=== PATIENT | female | born 1980 | race Caucasian/White ===

== ENCOUNTER 2016-12-03 22:15 | Emergency (ER) | payer MEDICAID ==
[2016-12-03 22:28] VITALS: BP 112/84
--- NOTE | 2016-12-03 22:45 | EDM.PDOC ---
ED HPI RENAL/ - General Chief Complaint: Genitourinary Problem Stated Complaint: UTI Time Seen by Provider: 12/03/16 22:44 Source of Information: Reports: Patient History Limitations: Reports: No limitations - History of Present Illness INITIAL COMMENTS - FREE TEXT/NARRATIVE: 36-year-old female presents to the ED with acute onset of dysuria urgency and frequency and lower abdominal suprapubic pressure discomfort. No back pain no fever no chills. She reports she did have sexual intercourse over the weekend which is not had for a lengthy period of time. She has had a previous urinary tract infection. Does not believe she is . No previous abdominal surgeries. Symptom Onset Date: 12/03/16 Symptom Onset Time: 18:00 Timing/Duration: Reports: Hour(s):, Sudden onset Location: Reports: urethral, suprapubic Quality: Reports: burning, cramping Severity: moderate (frequency and urgency with dysuria.) Worsens with: Reports: urinating Context: Reports: other (recent return to active sexual intercourse.). Denies: sick contact, recent surgery, recent trauma, lifting, activity/exercise Associated Symptoms: Reports: burning, dysuria, frequency, urgency, abdominal pain. Denies: hesitancy, nocturia, unable to urinate, voiding small amounts, dyspareunia, vaginal bleeding, vaginal discharge, amenorrhea, dysmenorrhea, menorrhagia, groin pain, swelling, blood in urine, fever/chills, inguinal mass ( suprapubic pressure discomfort.), nausea/vomiting, constipation, diarrhea Treatments EXPRESSIVE THERAPIST: Reports: Other (see below) (none) - Related Data Allergies/ADRs: Allergies Allergy/AdvReac Type Severity Reaction Status Date / Time No Known Allergies Allergy Verified 12/03/16 22:28 Home Meds: Home Meds Albuterol Sulfate [Proair Hfa] 8.5 gm IH Q4HR PRN #1 hfa.aer.ad 11/22/16 [Rx] Nitrofurantoin Isabella/Macrocryst [Macrobid] 100 mg PO BID #12 cap 12/03/16 [Rx] Past Medical History Respiratory History: Reports: Asthma, Pneumonia, recurrent - Past Surgical History HEENT Surgical History: Reports: Adenoidectomy, Other (see below) Other HEENT Surgeries/Procedures: polyps in nose removed; sinus surgery Social & Family History - Tobacco Use Smoking Status *Q: Current Every Day Smoker Years of Tobacco use: 20 Packs/Tins Daily: 0.5 - Caffeine Use Caffeine Use: Reports: None - Recreational Drug Use Recreational Drug Use: No ED ROS GENERAL - Review of Systems Review Of Systems: See Below Constitutional: Reports: no symptoms HEENT: Reports: No symptoms Respiratory: Reports: no symptoms Cardiovascular: Reports: No symptoms Endocrine: Reports: no symptoms GI/Abdominal: Reports: Abdominal pain (mild suprapubic pressure discomfort.) : Reports: dysuria, frequency, pain, urgency. Denies: flank pain Musculoskeletal: Reports: no symptoms Skin: Reports: no symptoms Neurological: Reports: no symptoms Psychiatric: Reports: No symptoms ED EXAM, RENAL/ - Physical Exam Exam: See Below Exam Limited By: No limitations General Appearance: alert, WD/WN, mild distress GI/Abdominal: normal bowel sounds, soft, non tender, no organomegaly, no distention, no mass, other (no scars) Extremities: normal inspection, normal range of motion, no pedal edema, normal capillary refill, slow capillary refill Neurological: alert, oriented, CN II-XII intact, normal cognition Course - Vital Signs Last Recorded V/S: Last Vital Signs Temp 36.3 C 12/03/16 22:22 Pulse 82 12/03/16 22:22 Resp 16 12/03/16 22:22 BP 112/84 12/03/16 22:22 Pulse Ox - Orders/Labs/Meds Orders: Active Orders 24 hr Category Date Time Status CULTURE URINE [RM] Stat Lab 12/03/16 23:28 Uncollected Phenazopyridine [Urinary Pain Relief] Med 12/04/16 09:00 Active 95 mg PO TIDPC Medication Orders Phenazopyridine HCl (Urinary Pain Relief) 95 mg PO TIDPC INDU Labs: Laboratory Tests 12/03/16 12/03/16 Range/Units 22:20 22:20 Urine Color Yellow (Yellow) Urine Appearance Cloudy H (Clear) Urine pH 5.5 (5.0-8.0) Ur Specific [place] > or = 1.030 (1.005-1.030) Urine Protein 2+ H (Negative) Urine Glucose (UA) Negative (Negative) Urine Ketones Negative (Negative) Urine Occult Blood 3+ H (Negative) Urine Nitrite Negative (Negative) Urine Bilirubin 1+ H (Negative) Urine Urobilinogen 0.2 (0.2-1.0) Ur Leukocyte Esterase Trace H (Negative) Urine RBC 30-40 H (0-5) /hpf Urine WBC 40-50 H (0-5) /hpf Ur Epithelial Cells 0-5 (0-5) /hpf Calcium Oxalate Crystal Few H (NONE) Urine Bacteria Moderate H (FEW) /hpf Urine Mucus Few (FEW) /hpf Urine HCG, Qual Negative (NEGATIVE) Meds: Medications Generic Name Dose Route Start Last Admin Trade Name Freq PRN Reason Stop Dose Admin Phenazopyridine HCl 95 mg 12/04/16 09:00 Urinary Pain Relief PO TIDPC INDU Discontinued Medications Generic Name Dose Route Start Last Admin Trade Name Freq PRN Reason Stop Dose Admin Levofloxacin 500 mg 12/03/16 22:58 12/03/16 23:06 Levaquin PO 12/03/16 22:59 500 mg ONETIME ONE Administration Phenazopyridine HCl Confirm 12/03/16 23:05 12/03/16 23:07 Urinary Pain Relief Administered 12/03/16 23:06 95 mg Dose Administration 95 mg .ROUTE .[facility] ONE - Radiology Interpretation Free Text/Narrative:: 36-year-old female presents the ED with acute onset of dysuria urgency and frequency. Started about 6 hours ago. Have regular sexual intercourse this weekend which she has not had for a lengthy period of time. Most likely this is the precipitant of acute urinary tract infection. Plan urinalysis to be done. She is very symptomatic and will therefore be given by radium 95 mg per oral and Levaquin 500 mg per or now. - Re-Assessments/Exams Free Text/Narrative Re-Assessment/Exam: 12/03/16 23:2 urinalysis was strongly positive for infective process. Urine culture ordered.treated with Levaquin 500 mg orally in the ED and initial dose of Pyridium 95 mg per oral. She we discharged home to fill prescription for Macrobid 100 mg twice daily for the next 6 days starting tomorrow morning. Departure - Departure Time of Disposition: 22:59 Disposition: Home, Self-Care 01 Condition: fair Clinical Impression: Acute lower urinary tract infection Prescriptions: Nitrofurantoin Isabella/Macrocryst [Macrobid] 100 mg PO BID #12 cap Referrals: PCP,None [Primary Care Provider] - Forms: ED Department Discharge, Return to Work/School Form Additional Instructions: evaluation in the emergency room tonight in regards to development of acute lower urinary tract infection which we called cystitis. Analysis performed does confirm an early infective process. Treatment was started in the ED with antibiotic Levaquin 500 mg by mouth and Pyridium 95 mg by mouth to relieve some of the burning and urinary frequency and urgency. Tomorrow we will have to fill prescription for Macrobid 100 mg twice daily for another 6 days to clear up infection completely. SPECT marked improvement in symptoms in the next 12 hours. Plenty of fluids. - My Orders Last 24 Hours: My Active Orders 12/03/16 23:28 CULTURE URINE [RM] Stat 12/04/16 09:00 Phenazopyridine [Urinary Pain Relief] 95 mg PO TIDPC - Assessment/Plan Last 24 Hours: My Active Orders 12/03/16 23:28 CULTURE URINE [RM] Stat 12/04/16 09:00 Phenazopyridine [Urinary Pain Relief] 95 mg PO TIDPC
[2016-12-03] MEDS ORDERED: Levofloxacin 250 MG Tab PO ONE (22:58)
[2016-12-03] MEDS ORDERED: Phenazopyridine 95 MG Tab ONE (23:05)
[2016-12-04] MEDS ORDERED: Phenazopyridine 95 MG Tab PO SCH (09:00)
== END 2016-12-03 23:30 | disposition home or self-care (01) ==
LOC: JD.ED 22:15
DX: N39.0 Urinary tract infection, site not specified (principal); J45.909 Unspecified asthma, uncomplicated; F17.210 Nicotine dependence, cigarettes, uncomplicated; Z87.01 Personal history of pneumonia (recurrent); Z98.890 Other specified postprocedural states
CPT/HCPCS: 81001; 81025; 87086; 99283; A9270; 87088; 87186

== ENCOUNTER 2016-12-05 09:38 | Emergency (ER) | payer MEDICAID ==
[2016-12-05] MEDS ORDERED: Famotidine 20 MG Tab PO ONE (10:13)
--- NOTE | 2016-12-05 10:49 | EDM.PDOC ---
ED HPI RENAL/ - General Chief Complaint: Abdominal Pain Stated Complaint: ABDOMINAL PAIN Time Seen by Provider: 12/05/16 09:55 Source of Information: Reports: Patient, RN notes reviewed - History of Present Illness INITIAL COMMENTS - FREE TEXT/NARRATIVE: 36-year-old female comes in with upper abdominal pain. Started this morning several hours ago. She's been on Macrobid antibiotic for the last 2 or 3 days for UTI. She states those symptoms have a local and much better. However the upper abdominal discomfort started this morning. She's had no nausea vomiting. No lower abdominal tenderness. The pain does not radiate to her back. No fever or chills yesterday or today - Related Data Allergies/ADRs: Allergies Allergy/AdvReac Type Severity Reaction Status Date / Time No Known Allergies Allergy Verified 12/05/16 09:46 Home Meds: Home Meds Albuterol Sulfate [Proair Hfa] 8.5 gm IH Q4HR PRN #1 hfa.aer.ad 11/22/16 [Rx] Nitrofurantoin [place]/Macrocryst [Macrobid] 100 mg PO BID #12 cap 12/03/16 [Rx] Sulfamethoxazole/Trimethoprim [Bactrim Ds Tablet] 1 each PO BID #5 tablet [Rx] Past Medical History Respiratory History: Reports: Asthma, Pneumonia, recurrent - Past Surgical History HEENT Surgical History: Reports: Adenoidectomy, Other (see below) Other HEENT Surgeries/Procedures: polyps in nose removed; sinus surgery Social & Family History - Tobacco Use Smoking Status *Q: Current Every Day Smoker Years of Tobacco use: 15 Packs/Tins Daily: 0.5 - Caffeine Use Caffeine Use: Reports: None - Recreational Drug Use Recreational Drug Use: No ED ROS GENERAL - Review of Systems Review Of Systems: See Below Constitutional: Denies: fever, chills HEENT: Reports: No symptoms Respiratory: Denies: shortness of breath Cardiovascular: Denies: Chest pain, Lightheadedness GI/Abdominal: Reports: Abdominal pain (upper mid abdomen without radiation). Denies: Diarrhea, Nausea, Vomiting : Reports: dysuria ([place]), frequency (now better), urgency (now better) Musculoskeletal: Denies: back pain Skin: Reports: no symptoms Neurological: Reports: no symptoms ED EXAM, RENAL/ - Physical Exam Exam: See Below General Appearance: alert, no apparent distress Throat/Mouth: Normal inspection, Normal oropharynx Head: No: facial swelling Neck: supple, full range of motion Respiratory/Chest: no respiratory distress, lungs clear, normal breath sounds Cardiovascular: regular rate, rhythm GI/Abdominal: soft, tender (very mild tenderness upper mid abdomen, right upper quadrant in remainder of abdomen is soft and nontender) Back Exam: No: CVA tenderness (L), CVA tenderness (R) Extremities: normal inspection Neurological: alert, oriented Course - Vital Signs Last Recorded V/S: Last Vital Signs Temp 98.1 F 12/05/16 11:10 Pulse 79 12/05/16 11:10 Resp 16 12/05/16 11:10 BP 103/81 12/05/16 11:10 Pulse Ox 100 12/05/16 11:10 - Orders/Labs/Meds Labs: Laboratory Tests 12/05/16 Range/Units 10:01 Urine Color Yellow (Yellow) Urine Appearance Clear (Clear) Urine pH 6.0 (5.0-8.0) Ur Specific [place] 1.015 (1.005-1.030) Urine Protein Negative (Negative) Urine Glucose (UA) Negative (Negative) Urine Ketones Negative (Negative) Urine Occult Blood Negative (Negative) Urine Nitrite Negative (Negative) Urine Bilirubin Negative (Negative) Urine Urobilinogen 0.2 (0.2-1.0) Ur Leukocyte Esterase Negative (Negative) Urine RBC 0-5 (0-5) /hpf Urine WBC 0-5 (0-5) /hpf Ur Epithelial Cells 10-20 H (0-5) /hpf Urine Bacteria Few (FEW) /hpf Urine Mucus Not seen (FEW) /hpf Meds: Medications Discontinued Medications Generic Name Dose Route Start Last Admin Trade Name Freq PRN Reason Stop Dose Admin Famotidine 20 mg 12/05/16 10:13 12/05/16 10:19 Pepcid PO 12/05/16 10:14 20 mg ONETIME ONE Administration - Re-Assessments/Exams Free Text/Narrative Re-Assessment/Exam: 12/05/16 13:59 UA today is much improved, only 0-5 wbc's and rare bacteria, discharge instructions as documented Departure - Departure Time of Disposition: 10:47 Disposition: Home, Self-Care 01 Clinical Impression: Gastritis Qualifiers: Gastritis type: unspecified gastritis Chronicity: acute Gastritis bleeding: without bleeding Qualified Code(s): K29.00 - Acute gastritis without bleeding UTI (urinary tract infection) Qualifiers: Urinary tract infection type: acute cystitis Hematuria presence: without hematuria Qualified Code(s): N30.00 - Acute cystitis without hematuria Prescriptions: Sulfamethoxazole/Trimethoprim [Bactrim Ds Tablet] 1 each PO BID #5 tablet Instructions: Gastritis, Adult, [id number], Urinary Tract Infection, Adult, [id number] Referrals: PCP,None [Primary Care Provider] - Forms: ED Department Discharge Additional Instructions: stop the Macrobid, continue to drink plenty water, Bactrim DS twice daily, start that this evening and then continue that for the next 2 days, total of 5 doses. Pepcid or famotidine available OTC, 20 mg twice daily for the next 3 days or until after discomfort has completely resolved, You may take tums or liquid antacid in between doses of the Pepcid if needed for further relief of upper abdominal discomfort, followup clinic if not back to normal within 3-5 days as expected, return to ED as needed
[2016-12-05 11:18] VITALS: BP 103/81
== END 2016-12-05 11:10 | disposition home or self-care (01) ==
LOC: JD.ED 09:38
DX: K29.00 Acute gastritis without bleeding (principal); N30.00 Acute cystitis without hematuria; J45.909 Unspecified asthma, uncomplicated; F17.210 Nicotine dependence, cigarettes, uncomplicated; Z98.890 Other specified postprocedural states
CPT/HCPCS: 81001; 99284; A9270; 99283

== ENCOUNTER 2016-12-10 17:52 | Emergency (ER) | payer OTHER, MEDICAID ==
[2016-12-10 18:07] VITALS: BP 110/73
--- NOTE | 2016-12-10 18:28 | EDM.PDOC ---
ED HPI Trauma - General Chief Complaint: Trauma Stated Complaint: INJURIES TO RIGHT SIDE FELL ON ICE Time Seen by Provider: 12/10/16 18:26 Source: Reports: Patient History Limitations: Reports: No limitations - History of Present Illness INITIAL COMMENTS - FREE TEXT/NARRATIVE: 36-year-old female attends the ED after slipping and falling in the parking lot after leaving the workplace. She landed hard on her right side. She states she hit the right side of her head primarily temporoparietal scalp with no loss of consciousness. She does have a headache at this time no associated nausea or vomiting. Neck is a little stiff and sore but she has full range of motion. Schlatter with her arm up in the air and contused her right ribs. She can take a deep breath without any pain however. Primary pain is in her right hip and lateral proximal thigh. She appreciates marked swelling in this area. Can hardly weight-bear walk. Symptom Onset Date: 12/10/16 Symptom Onset Time: 18:00 Occurred When: just prior to arrival Occurred Where: other (parking lot/sidewalk outside her work place) Method of Injury: fall (slipped and fell) Severity: moderate ( on ice under the snow.) Pain/Injury Location: Reports: head (right temporal parietal scalp.), chest ( right lateral ribs), pelvis (right hip and pelvis), lower extremity, right ( right hip and pelvis and lateral by) Consciousness: Reports: no loss of consciousness, remembers incident, remembers coming to hosp Associated Symptoms: Reports: no other symptoms Allergies/ADRs: Allergies No Known Allergies Allergy (Verified 12/10/16 18:01) Home Medications: Ambulatory Orders Albuterol Sulfate [Proair Hfa] 8.5 gm IH Q4HR PRN #1 hfa.aer.ad 11/22/16 [ Confirmed 12/10/16] oxyCODONE HCl/Acetaminophen [Percocet 5-325 mg Tablet] 1 - 2 each PO Q4H PRN # 20 tablet 12/10/16 Past Medical History Respiratory History: Reports: Asthma, Pneumonia, recurrent - Infectious Disease History Infectious Disease History: Reports: Chicken pox - Past Surgical History HEENT Surgical History: Reports: Adenoidectomy, Other (see below) Other HEENT Surgeries/Procedures: polyps in nose removed; sinus surgery Social & Family History - Tobacco Use Smoking Status *Q: Current Every Day Smoker Years of Tobacco use: 14 Packs/Tins Daily: 0.5 - Caffeine Use Caffeine Use: Reports: Soda - Recreational Drug Use Recreational Drug Use: No - Living Situation & Occupation Occupation: employed Review of Systems - Review of Systems Review Of Systems: See Below Constitutional: Reports: no symptoms Eyes: Reports: no symptoms Ears: Reports: no symptoms Nose: Reports: no symptoms Mouth/Throat: Reports: no symptoms Respiratory: Reports: other (has pain along her right lateral ribs.) Cardiovascular: Reports: no symptoms GI/Abdominal: Reports: No symptoms Genitourinary: Reports: no symptoms Musculoskeletal: Reports: no symptoms (some pain in her right forearm and elbow. Right hip and proximal thigh.) Skin: Reports: no symptoms Neurological: Reports: headache, difficulty walking (due to pain and swelling in her proximal right thigh and hip very.). Denies: confusion, dizziness, numbness, paresthesia, pre-existing deficit, seizure, syncope, tingling, tremors , trouble speaking, weakness, change in speech Psychiatric: Reports: no symptoms ED EXAM, TRAUMA (MAJOR/MULTI) - Physical Exam Exam: See Below Exam Limited By: No limitations General Appearance: alert, WD/WN, anxious, mild distress Head: other (no palpable scalp hematoma. Minimal tenderness along the right parietal scalp without deformity.) Eyes: bilateral eye: normal inspection Throat/Mouth: Normal inspection, Normal lips, Normal teeth, Normal oropharynx, Other (no tongue injury) Neck: full range of motion, paraspinous muscle tender (mild on the right side. The range of motion is full) Cardiovascular: normal peripheral pulses, regular rate, rhythm, no edema, no gallop, no murmur Respiratory/Chest: no respiratory distress, lungs clear, normal breath sounds, no accessory muscle use, other (palpation of all ribs revealed no crepitus or subcutaneous emphysema. No localized symptoms to suggest a rib fracture clinically.) GI/Abdominal: normal bowel sounds, soft, non tender, no organomegaly, other ( some pain along the inguinal ligament on the right side .) (Female) Exam: Normal external exam Back: full range of motion, normal inspection, non-tender. No: CVA tenderness ( R), CVA tenderness (L) Extremities: other (patient has a few abrasions little bit of swelling of the right elbow. She has full pronation supination extension and flexion at the elbow i.e. no bony fractures evident. The lower extremity shows pain over the greater trochanteric bursa and marked hematoma developing in the right lateral quadriceps musculature. It's the size of a small football. She can lift the leg off the gurney straight up in the air but has trouble with internal/external rotation at the hip.) Neurologic: no motor/sensory deficits, alert, normal mood/affect, oriented x 3 Skin: Normal color, Warm/dry - Katiaan Coma Score Best Eye Response (Katiana): (4) open spontaneously Best Verbal Response (Katiana): (5) oriented Best Motor Response ([place]): (6) obeys commands Katiana Total: 15 Course - Vital Signs Last Recorded V/S: Last Vital Signs Temp 36.2 C 12/10/16 18:03 Pulse 86 12/10/16 18:03 Resp 12 12/10/16 18:03 BP 110/73 12/10/16 18:03 Pulse Ox 98 12/10/16 18:03 - Orders/Labs/Meds Orders: Active Orders 24 hr Category Date Time Status Hip Min 2V or 3V w Pelvis Rt [CR] Stat Exams 12/10/16 18:24 Taken - Radiology Interpretation Free Text/Narrative:: 36-year-old female presents the ED for evaluation after slipping and falling on ice outside of her workplace tonight. She states she landed hard on the sidewalk striking the right side of her head with minor injury to the parietal temporal scalp. There is no hematoma palpable deformities to suggest serious intracranial injury. Some stiffness in the right side of her neck is appreciated which is low, pulled range of motion. Shoulders okay. Ribs are tender along the right lateral rib cage without any crepitus or subcutaneous emphysema or palpable deformity chest to suggest a rib fracture. Right elbow has a few abrasions contusions but has full pronation supination and extension flexion without evidence of bony injury. Right side shows pain over the greater trochanteric process and lateral anterior thigh with hematoma developing of the size of a small football. She is limited in external and internal rotation of her hip due to pain in this area along the inguinal ligament appreciated. Plan x -ray of the pelvis and right hip to be done. - Re-Assessments/Exams Free Text/Narrative Re-Assessment/Exam: 12/10/16 19:21x-ray of the pelvis and proximal femur on the right side involving the hip reveals no fractures. Injuries are soft tissue to the lateral quadriceps musculature and tensor fascia amber. Rapid the area with a six-inch Denilson wrap to provide compression and allow her to put ice on the area one half hour out of every 4 hours for the next few days. She cannot weight bear and will require crutches. Advised [id number] mg every 6 hours or or Aleve2 tablets every 8 hours for pain relief.I also wrote a prescription for Percocet 5 /325 mg tablets x16 that she can fill tomorrow if needed for pain relief. One or 2 every 4-6 hours. Written to excuse her from work place for the next 4 days.she will followup with her personal physician if not able to return to work in 4 days' time. Departure - Departure Time of Disposition: 19:23 Disposition: Home, Self-Care 01 Condition: fair Clinical Impression: Minor closed head injury Fall Qualifiers: Encounter type: initial encounter Qualified Code(s): W19.XXXA - Unspecified fall, initial encounter Contusion of rib on right side Qualifiers: Encounter type: initial encounter Qualified Code(s): S20.211A - Contusion of right front wall of thorax, initial encounter Contusion of right elbow and forearm Qualifiers: Encounter type: initial encounter Qualified Code(s): S50.11XA - Contusion of right forearm, initial encounter Contusion of right hip and thigh Qualifiers: Encounter type: initial encounter Qualified Code(s): S70.01XA - Contusion of right hip, initial encounter Prescriptions: oxyCODONE HCl/Acetaminophen [Percocet 5-325 mg Tablet] 1 - 2 each PO Q4H PRN # 20 tablet PRN Reason: pain relief. Referrals: Janene Duffy NP [Primary Care Provider] - Forms: ED Department Discharge, Return to Work/School Form Additional Instructions: Evaluation in the emergency room today in regards to a fall outside of your workplace tonight. He suffered blunt trauma with minor closed head injury to the right side of your head. No deformities or evidence of skull fracture identified. Contusion to the right lateral ribs without palpable deformity or fracture of ribs are identified on exam. Strain of the inguinal ligament and right lower quadrant of the abdomen evident on exam with no internal injuries identified. Mild abrasion and contusion to the right elbow and forearm him hitting the ground hard. Again no bony injuries identified marked swelling or hematoma development in the right lateral anterior thigh area below your hip bone identified on exam. This indicates bleeding within the soft tissues or muscles of the upper leg and hip. X-ray of the pelvis and hip was performed to rule out any chip fractures and x-rays turned out to be normal. Expect to be much more stiff and sore in the leg over the next 2 days. Soft tissue swelling goes on for 2 days after we get injured. Treatment is to stay off the leg as much as possible. Nonweightbearing crutch walking. I Denilson wrap applied in the ED he should stay on all day and all night tonight. Initially on during the day and off at night. Ice pack to the area for one half hour out of every 4 hours today and tomorrow. Note given to excuse you from the work place for the next 4 days. Suggest Motrin 600 mg every 6 hours or Aleve 2 tablets every 8 hours for pain and reduction of inflammation. May use Percocet 5 325 mg tablets one or 2 every 4-6 hours for pain not controlled by Motrin orally along the first few days. Followup with her personal care physician if you're not able to return to the workplace in 4 days' time. - My Orders Last 24 Hours: My Active Orders 12/10/16 18:24 Hip Min 2V or 3V w Pelvis Rt [CR] Stat - Assessment/Plan Last 24 Hours: My Active Orders 12/10/16 18:24 Hip Min 2V or 3V w Pelvis Rt [CR] Stat
--- NOTE | 2016-12-11 08:05 | CR ---
Pelvis and right hip: AP view of the pelvis was obtained as well as 2 views of the right hip. [id number] joint space narrowing seen within the right hip. Joint space within the left hip is preserved. Sacroiliac joints are unremarkable. No acute fracture or other bony abnormality is seen. Impression: 1. Joint space narrowing within the right hip. 2. Nothing acute seen on AP pelvis or on two-view right hip exam. Diagnostic code #2
== END 2016-12-10 19:40 | disposition home or self-care (01) ==
LOC: JD.ED 17:52
DX: S09.90XA Unspecified injury of head, initial encounter (principal); S20.211A Contusion of right front wall of thorax, initial encounter; S50.11XA Contusion of right forearm, initial encounter; S70.01XA Contusion of right hip, initial encounter; J45.909 Unspecified asthma, uncomplicated; F17.210 Nicotine dependence, cigarettes, uncomplicated; Z87.01 Personal history of pneumonia (recurrent); Z98.890 Other specified postprocedural states; W01.10XA Fall on same level from slipping, tripping and stumbling with subsequent striking against unspecified object, initial encounter
CPT/HCPCS: 73502-26-RT; 73502-RT; 99283; 99284

== ENCOUNTER 2018-02-03 09:17 | Emergency (ER) | payer MEDICAID ==
[2018-02-03 09:28] VITALS: BP 102/75
--- NOTE | 2018-02-03 10:38 | EDM.PDOC ---
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 Right burning type discomfort. No major itchiness. No voiding symptoms. No fever chills or other unusual symptomatology. - Related Data Allergies Allergy/AdvReac Type Severity Reaction Status Date / Time No Known Allergies Allergy Verified 02/03/18 09:24 Home Meds: Home Meds Albuterol Sulfate [Proair Hfa] 8.5 gm IH Q4HR PRN #1 hfa.aer.ad 11/22/16 [Rx] metroNIDAZOLE [Flagyl] 500 mg PO Q12H #14 tab 02/03/18 [Rx] Past Medical History Respiratory History: Reports: Asthma, Pneumonia, Recurrent - Infectious Disease History Infectious Disease History: Reports: Chicken Pox - Past Surgical History HEENT Surgical History: Reports: Adenoidectomy, Other (See Below) Social & Family History - Tobacco Use Smoking Status *Q: Current Every Day Smoker Years of Tobacco use: 12 Packs/Tins Daily: 1 - Caffeine Use Caffeine Use: Reports: Soda - Recreational Drug Use Recreational Drug Use: No - Living Situation & Occupation Occupation: Employed ED ROS GENERAL - Review of Systems Review Of Systems: See Below Constitutional: Denies: Fever, Chills HEENT: Reports: No Symptoms Respiratory: Denies: Shortness of Breath Cardiovascular: Denies: Chest Pain GI/Abdominal: Denies: Abdominal Pain, Nausea, Vomiting : Reports: Discharge (White) Musculoskeletal: Reports: No Symptoms ( with some older) Skin: Reports: No Symptoms Neurological: Reports: No Symptoms ED EXAM, RENAL/ - Physical Exam Exam: See Below General Appearance: Alert, No Apparent Distress Head: No: Facial Swelling Neck: Supple, Full Range of Motion Respiratory/Chest: No Respiratory Distress (Female) Exam: Vaginal Discharge (Mild to moderate white discharge, no unusual erythema or tenderness of the vaginal wall) Extremities: Normal Inspection, Normal Range of Motion Course - Vital Signs Last Recorded V/S: Last Vital Signs Temp 98.8 F 02/03/18 09:24 Pulse 78 02/03/18 09:24 Resp 16 02/03/18 09:24 BP 102/75 02/03/18 09:24 Pulse Ox 97 02/03/18 09:24 - Orders/Labs/Meds Labs: Laboratory Tests 02/03/18 Range/Units 09:50 C trachomatis DNA (PCR) Not detected N gonorrhoeae DNA (PCR) Not detected - Re-Assessments/Exams Free Text/Narrative Re-Assessment/Exam: 02/03/18 19:51 No yeast,Clue cells present, will treat with Flagyl, discharge instructions as documented Departure - Departure Time of Disposition: 11:58 Disposition: Home, Self-Care 01 Condition: Fair Clinical Impression: Bacterial vaginosis - Discharge Information Prescriptions: metroNIDAZOLE [Flagyl] 500 mg PO Q12H #14 tab Instructions: Bacterial Vaginosis, [id number] Referrals: PCP,None [Primary Care Provider] - Forms: ED Department Discharge Additional Instructions: Flagyl antibiotic 500 mg twice daily for 1 week, warm soaks in a warm bathtub once or twice daily will also be helpful. Follow-up with your regular clinical provider or at our [facility] medical clinic if symptoms not resolving within 5-7 days as expected.
[2018-02-03 11:55] LABS: C. TRACHOMATIS BY PCR NOT DETECTED; N. GONORRHOEAE BY PCR NOT DETECTED
== END 2018-02-03 12:08 | disposition home or self-care (01) ==
LOC: JD.ED 09:17
DX: N76.0 Acute vaginitis (principal); B96.89 Other specified bacterial agents as the cause of diseases classified elsewhere; F17.210 Nicotine dependence, cigarettes, uncomplicated; J45.909 Unspecified asthma, uncomplicated; Z87.01 Personal history of pneumonia (recurrent); Z79.899 Other long term (current) drug therapy
CPT/HCPCS: 87210; 87491; 87591; 87808; 99283

== ENCOUNTER 2018-03-07 02:28 | Emergency (ER) | payer MEDICAID ==
[2018-03-07 02:35] VITALS: BP 102/70
[2018-03-07] MEDS ORDERED: Albuterol/Ipratropium 3.0-0.5 MG/3 ML Neb Soln NEB ONE (02:41)
--- NOTE | 2018-03-07 02:52 | EDM.PDOC ---
ED HPI GENERAL MEDICAL PROBLEM - General Chief Complaint: Respiratory Problem Stated Complaint: sob Time Seen by Provider: 03/07/18 02:42 Source of Information: Reports: Patient History Limitations: Reports: No Limitations - History of Present Illness INITIAL COMMENTS - FREE TEXT/NARRATIVE: 37-year-old female presents to the ED with increasing dyspnea and wheezing. She is a known asthmatic but uses her inhaler on a intermittent sparingly basis usually when she gets a cold. Her asthma has been acting up over the last 4-5 days likely due to the high pollen count outside. She has associated cough or bring up any sputum. She has no fever or chills. Does not feel she contracted a cold. She ran out of her inhaler or can find it. She usually is on albuterol. She did fall asleep for short period of time but awoke short of breath this morning and thus came to the ED. Onset: Gradual Onset Date: 03/04/18 Duration: Day(s): (Gradually worsening asthma symptoms over the last 4-5 days.) Location: Reports: Chest (Asthma with shortness of breath and wheezing) Quality: Reports: Other Severity: Moderate (Dyspnea and wheezing) Improves with: Reports: None Worsens with: Reports: Movement Context: Reports: Other. Denies: Activity, Exercise, Lifting, Sick Contact, Trauma Associated Symptoms: Reports: Cough (Exacerbation of asthma symptoms), cough w sputum, Shortness of Breath, Other (Wheezing). Denies: No Other Symptoms, Confusion, Chest Pain (Clear sputum if anything), Diaphoresis, Fever/Chills, Headaches, Loss of Appetite, Malaise, Nausea/Vomiting, Rash, Seizure, Syncope Treatments [employer]: Reports: Other (see below) (None ran out of her albuterol inhaler) - Related Data Allergies Allergy/AdvReac Type Severity Reaction Status Date / Time No Known Allergies Allergy Verified 03/07/18 02:35 Home Meds: Home Meds Albuterol Sulfate [Proair Hfa] 8.5 gm IH Q4HR PRN #1 hfa.aer.ad 11/22/16 [Rx] Albuterol [Ventolin HFA] 2 puff INH Q4H PRN #1 inhaler 03/07/18 [Rx] predniSONE [Deltasone] 20 mg PO DAILY #6 tablet 03/07/18 [Rx] Past Medical History Respiratory History: Reports: Asthma, Pneumonia, Recurrent - Infectious Disease History Infectious Disease History: Reports: Chicken Pox - Past Surgical History HEENT Surgical History: Reports: Adenoidectomy, Other (See Below) Social & Family History - Tobacco Use Smoking Status *Q: Current Some Day Smoker Years of Tobacco use: 20 Packs/Tins Daily: 0.3 - Caffeine Use Caffeine Use: Reports: None - Recreational Drug Use Recreational Drug Use: No - Living Situation & Occupation Living situation: Reports: Single Occupation: Unemployed ED ROS GENERAL - Review of Systems Review Of Systems: See Below Constitutional: Reports: Malaise, Weakness, Fatigue, Decreased Appetite. Denies : Fever, Chills HEENT: Reports: No Symptoms Respiratory: Reports: Shortness of Breath, Wheezing, Cough. Denies: Pleuritic Chest Pain, Sputum, Hemoptysis, Other Cardiovascular: Reports: Chest Pain (Some central chest pressure discomfort). Denies: Blood Pressure Problem, Claudication, Dyspnea on Exertion, Edema, Lightheadedness, Orthopnea Endocrine: Reports: No Symptoms GI/Abdominal: Reports: Decreased Appetite Musculoskeletal: Reports: No Symptoms Skin: Reports: No Symptoms Neurological: Reports: No Symptoms Psychiatric: Reports: No Symptoms ED EXAM, GENERAL - Physical Exam Exam: See Below Exam Limited By: No Limitations General Appearance: Alert, WD/WN, Mild Distress Eye Exam: Bilateral Eye: Normal Inspection Ears: Normal TMs Throat/Mouth: Normal Inspection, Normal Lips, Normal Oropharynx Head: Atraumatic, Normocephalic Neck: Normal Inspection, Supple, Non-Tender, Full Range of Motion. No: Lymphadenopathy (L), Lymphadenopathy (R) Respiratory/Chest: Respiratory Distress (Mild tachypnea 22/m.), Decreased Breath Sounds (Decreased air entry to the 25% of lower lung bases bilaterally.) , Wheezing (Wheezing particularly from the lung bases bilaterally.). No: Rhonchi Cardiovascular: Normal Peripheral Pulses, Regular Rate, Rhythm, No Edema, No Gallop, No Murmur, No Rub Back Exam: Normal Inspection, Full Range of Motion. No: CVA Tenderness (L), CVA Tenderness (R) Extremities: Normal Inspection, Normal Range of Motion, No Pedal Edema, Slow Capillary Refill Neurological: Alert, Oriented, CN II-XII Intact, Normal Cognition, Normal Gait Psychiatric: Normal Affect, Normal Mood Skin Exam: Warm, Dry, Intact, Normal Color, No Rash Course - Vital Signs Last Recorded V/S: Last Vital Signs Temp 36.7 C 03/07/18 02:33 Pulse 64 03/07/18 02:33 Resp 18 03/07/18 02:33 BP 102/70 03/07/18 02:33 Pulse Ox 97 03/07/18 02:45 - Orders/Labs/Meds Orders: Active Orders 24 hr Category Date Time Status RT Aerosol Therapy [RC] ASDIRECTED Care 03/07/18 02:41 Active RT Post Treatment Assessment [RC] Click to Edit Care 03/07/18 02:56 Active RT Pre-Treatment Assessment [RC] Click to Edit Care 03/07/18 02:56 Active Meds: Medications Discontinued Medications Generic Name Dose Route Start Last Admin Trade Name Harjit PRN Reason Stop Dose Admin Albuterol 8.5 gm 03/07/18 02:54 03/07/18 03:03 Proventil Hfa INH 03/07/18 02:55 2 puff ONETIME ONE Administration Albuterol/Ipratropium 3 ml 03/07/18 02:41 03/07/18 02:47 Duoneb 3.0-0.5 Mg/3 Ml NEB 03/07/18 02:42 3 ml ONETIME ONE Administration Prednisone 20 mg 03/07/18 02:54 03/07/18 02:57 Prednisone PO 03/07/18 02:55 20 mg ONETIME ONE Administration - Radiology Interpretation Free Text/Narrative:: 37-year-old female presents the ED with an acute exacerbation of asthma symptoms. She has no cold or upper spectra tract symptoms. Has been is likely exacerbated by environmental agents as the pollen count is very high at this point time in [place]. She usually has an albuterol inhaler but has run out of medication. She usually uses it on a when necessary basis usually after she gets a cold etc. Examination confirms bilateral wheezing from the all lung acevedo but worse from both bases with decreased air entry. O2 sats are maintained at 96%. Plan DuoNeb treatment. Prednisone 20 mg per ora - Re-Assessments/Exams Free Text/Narrative Re-Assessment/Exam: 03/07/18 03:00: Air entry is improved to both lung acevedo and she feels like she can get a full deep breath. She still has audible wheezing from both lung bases. Plan will be to discharge her on prednisone 20 mg once daily every morning for the next 6 days. She was given an albuterol inhaler 8.5 mg inhaler from the ED. I did write a prescription for the 18 mg inhaler that she can fill as needed. She is to follow-up if not markedly improved in 3 days time. Departure - Departure Time of Disposition: 03:05 Disposition: Home, Self-Care 01 Condition: Fair Clinical Impression: Exacerbation of asthma Qualifiers: Asthma severity: moderate Asthma persistence: unspecified Qualified Code(s): J45.901 - Unspecified asthma with (acute) exacerbation - Discharge Information Prescriptions: Albuterol [Ventolin HFA] 2 puff INH Q4H PRN #1 inhaler PRN Reason: Relief of asthma predniSONE [Deltasone] 20 mg PO DAILY #6 tablet Referrals: PCP,None [Primary Care Provider] - Forms: ED Department Discharge Additional Instructions: Evaluation the emergency room tonight in regards to exacerbation or worsening of asthma symptoms. This is most likely due to the high pollen count outside at this point time. He ran out of your albuterol inhaler which he usually uses on intermittent basis for asthma control. You were found to be quite wheezy particularly lung bases today. Treatment in the ED was albuterol and Atrovent inhalational treatment called Stacy. Also prednisone 20 mg was given by mouth. This is to reduce inflammation of the upper airway but takes 4-6 hours to begin to work. I would suggest one tablet of prednisone every morning for the next 6 days. She'll be due tomorrow morning. Also refilled your albuterol inhaler that she can use as needed for wheezing and/or shortness of breath. Follow-up with personal physician if not markedly improved in the next 5-8 days time or if asthma symptoms persist in spite of treatment. - My Orders Last 24 Hours: My Active Orders 03/07/18 02:41 RT Aerosol Therapy [RC] ASDIRECTED 03/07/18 02:56 RT Post Treatment Assessment [RC] Click to Edit RT Pre-Treatment Assessment [RC] Click to Edit - Assessment/Plan Last 24 Hours: My Active Orders 03/07/18 02:41 RT Aerosol Therapy [RC] ASDIRECTED 03/07/18 02:56 RT Post Treatment Assessment [RC] Click to Edit RT Pre-Treatment Assessment [RC] Click to Edit
[2018-03-07] MEDS ORDERED: Albuterol 6.7 GM Inhaler INH ONE (02:54)
[2018-03-07] MEDS ORDERED: predniSONE 20 MG Tab PO ONE (02:54)
== END 2018-03-07 03:14 | disposition home or self-care (01) ==
LOC: JD.ED 02:28
DX: J45.901 Unspecified asthma with (acute) exacerbation (principal); F17.210 Nicotine dependence, cigarettes, uncomplicated
CPT/HCPCS: 94640; 94664; 99284; A9270; 99283

== ENCOUNTER 2018-03-31 00:21 | Emergency (ER) | payer MEDICAID ==
[2018-03-31 00:33] VITALS: BP 121/87
--- NOTE | 2018-03-31 00:52 | EDM.PDOC ---
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 CRAMPY Time Seen by Provider: 03/31/18 00:29 Source of Information: Reports: Patient History Limitations: Reports: No Limitations - History of Present Illness INITIAL COMMENTS - FREE TEXT/NARRATIVE: This is a 37-year-old female. She states that over the last week or 2 weeks she' s been having increasing tenderness of her breasts she been having lower abdominal crampy sensation and nausea and also having some back symptoms like when she was last time. She states that she could be and normally the urine tests don't show for her until she is maybe 2 months along. She thinks she might be 2 weeks along but she doesn't know. Due to her symptoms she wants a blood test to see if she is . 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 Her normal menstrual period is due on 05 April and sometimes she'll have these symptoms around the time she has her period but it's too early so she thinks she might be . She is not tried a home test simply because she says they don't work for her until she is far along in the . 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: - Infectious Disease History Infectious Disease History: Reports: Chicken Pox - Past Surgical History HEENT Surgical History: Reports: Adenoidectomy, Other (See Below) Social & Family History - Tobacco Use Smoking Status *Q: Current Every Day Smoker Years of Tobacco use: 15 Packs/Tins Daily: 0.5 - Caffeine Use Caffeine Use: Reports: None - Recreational Drug Use Recreational Drug Use: No - Living Situation & Occupation Living situation: Reports: Single Occupation: Unemployed ED ROS GENERAL - Review of Systems Review Of Systems: See Below Constitutional: Reports: Fever, Chills HEENT: Reports: No Symptoms Respiratory: Reports: No Symptoms Cardiovascular: Reports: No Symptoms Endocrine: Reports: No Symptoms GI/Abdominal: Reports: Other (As per history of present illness) Musculoskeletal: Reports: No Symptoms Skin: Reports: No Symptoms Neurological: Reports: No Symptoms Psychiatric: Reports: No Symptoms Hematologic/Lymphatic: Reports: No Symptoms ED EXAM - Physical Exam Exam: See Below Exam Limited By: No Limitations General Appearance: Alert, WD/WN, No Apparent Distress Eye Exam: Bilateral Eye: Normal Inspection Ears: Normal External Exam Nose: Normal Inspection Throat/Mouth: Normal Inspection, Normal Lips, Normal Voice, No Airway Compromise Head: Normocephalic Neck: Supple Respiratory/Chest: No Respiratory Distress GI/Abdominal Exam: Soft Back Exam: Full Range of Motion Extremities: Normal Inspection, Normal Range of Motion Neurological: Alert, Oriented Psychiatric: Normal Affect, Normal Mood Skin Exam: Warm, Dry Course - Vital Signs Last Recorded V/S: Last Vital Signs Temp 97.3 F 03/31/18 00:31 Pulse 51 L 03/31/18 00:31 Resp 16 03/31/18 00:31 BP 121/87 03/31/18 00:31 Pulse Ox 98 03/31/18 00:31 - Orders/Labs/Meds Labs: Laboratory Tests 03/31/18 Range/Units 00:55 HCG, Qual Negative (NEGATIVE) - Re-Assessments/Exams Free Text/Narrative Re-Assessment/Exam: 03/31/18 01:33 I spoke to the patient regarding her negative test. Her symptoms could be related to hormonal changes and I suggested she follow-up with her family doctor for recheck. Departure - Departure Time of Disposition: 01:34 Disposition: Home, Self-Care 01 Condition: Good Clinical Impression: Nausea, Abdominal cramps, Breast tenderness in female - Discharge Information Referrals: PCP,None [Primary Care Provider] - Forms: ED Department Discharge Additional Instructions: Continue with normal activity, follow-up with your family doctor if your symptoms persist, return to the ER if needed
== END 2018-03-31 01:41 | disposition home or self-care (01) ==
LOC: JD.ED 00:21
DX: R10.9 Unspecified abdominal pain (principal); R11.0 Nausea; F17.210 Nicotine dependence, cigarettes, uncomplicated; N64.4 Mastodynia
CPT/HCPCS: 36415; 84703; 99282

== ENCOUNTER 2018-05-12 22:17 | Emergency (ER) | payer MEDICAID ==
[2018-05-12 22:49] VITALS: BP 130/88
--- NOTE | 2018-05-12 23:31 | EDM.PDOC ---
ED HPI GENERAL MEDICAL PROBLEM - General Chief Complaint: General Stated Complaint: TOO MUCH HEAT Time Seen by Provider: 05/12/18 23:19 Source of Information: Reports: Patient, Family (Son) History Limitations: Reports: No Limitations - History of Present Illness INITIAL COMMENTS - FREE TEXT/NARRATIVE: The patient states that she developed a headache, nausea, lightheadedness, and chills around 19:30 tonight. She is worried that she is dehydrated or has heat exhaustion or heat stroke. No prior similar symptoms. Here in the ED, the patient's vital signs are stable with a temperature of 36.7 C. The patient reports that she has had nasal and sinus congestion since March, and that she has been using Afrin nasal spray every day. The patient does not have a PCP. 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: - Infectious Disease History Infectious Disease History: Reports: Chicken Pox - Past Surgical History HEENT Surgical History: Reports: Adenoidectomy, Naso-Sinus Surgery (nasal polyp excision), Oral Surgery (wisdom teeth extraction) Social & Family History - Tobacco Use Smoking Status *Q: Current Every Day Smoker Years of Tobacco use: 22 Packs/Tins Daily: 1 - Caffeine Use Caffeine Use: Reports: Soda - Alcohol Use Alcohol Use History: Yes Alcohol Use Frequency: Socially - Recreational Drug Use Recreational Drug Use: No - Living Situation & Occupation Living situation: Reports: Single, with Family (Son) Occupation: Unemployed ED ROS GENERAL - Review of Systems Review Of Systems: ROS reveals no pertinent complaints other than HPI. ED EXAM, GENERAL - Physical Exam Exam: See Below Exam Limited By: No Limitations General Appearance: Alert, WD/WN, No Apparent Distress Eye Exam: Bilateral Eye: EOMI, Normal Inspection Ears: Normal External Exam, Hearing Grossly Normal Nose: Normal Inspection, No Blood Throat/Mouth: Normal Inspection, Normal Lips, Normal Voice, No Airway Compromise Head: Atraumatic, Normocephalic Neck: Normal Inspection, Full Range of Motion Respiratory/Chest: No Respiratory Distress, Lungs Clear, Normal Breath Sounds, No Accessory Muscle Use Cardiovascular: Normal Peripheral Pulses, Regular Rate, Rhythm, No Edema, No Gallop, No JVD, No Murmur, No Rub Peripheral Pulses: 4+: Radial (L), Radial (R) GI/Abdominal: Normal Bowel Sounds, Soft, Non-Tender, No Organomegaly, No Distention, No Abnormal Bruit, No Mass (Female) Exam: Deferred Rectal (Female) Exam: Deferred Back Exam: Normal Inspection, Full Range of Motion, NT Extremities: Normal Inspection, Normal Range of Motion, No Pedal Edema, Normal Capillary Refill Neurological: Alert, Oriented, Normal Cognition, No Motor/Sensory Deficits Psychiatric: Normal Affect Skin Exam: Warm, Dry, Intact, Normal Color, No Rash Course - Vital Signs Last Recorded V/S: Last Vital Signs Temp 36.7 C 05/12/18 22:48 Pulse 58 L 05/12/18 22:48 Resp 20 05/12/18 22:48 BP 130/88 05/12/18 22:48 Pulse Ox 99 05/12/18 22:48 Orthostatic Blood Pressure [ 105/84 Standing] Orthostatic Blood Pressure [ 117/81 Supine] - Orders/Labs/Meds Orders: Active Orders 24 hr Category Date Time Status Orthostatic Vital Signs [RC] STAT Care 05/12/18 23:27 Active - Re-Assessments/Exams Free Text/Narrative Re-Assessment/Exam: 05/12/18 23:30 The patient is concerned that she may be dehydrated or suffering from heat exhaustion or heat stroke, however, the patient is not hyperthermic, therefore both heat exhaustion and heat stroke are not possible. I have ordered orthostatics. If the patient is orthostatic, I will order blood work and continue to give IV fluid until the patient is no longer orthostatic, however, if she is not orthostatic, then I don't believe blood work is necessary, as her physical exam is otherwise entirely unremarkable. 05/13/18 00:10 The patient is non-orthostatic. I will discharge her home with the recommendation that she stop using Afrin nasal spray completely. If the rebound hyperemia that she may suffer from as a result is too severe, she may need to be treated with steroids, therefore I will refer her to Dr. Lundberg as a PCP. Departure - Departure Time of Disposition: 00:11 Disposition: Home, Self-Care 01 Condition: Good Clinical Impression: Malaise, Decongestant abuse - Discharge Information *PRESCRIPTION DRUG MONITORING PROGRAM REVIEWED*: Not Applicable *COPY OF PRESCRIPTION DRUG MONITORING REPORT IN PATIENT GILBERT: Not Applicable Instructions: Weakness, [id number] Referrals: PCP,None [Ordering Only Provider] - Tami Lundberg MD [Physician] - Forms: ED Department Discharge Additional Instructions: You were seen in the emergency room for a headache, nausea, lightheadedness, and chills. Evaluation in the ER included additional blood pressure checks, which returned normal. You are not dehydrated. You are not suffering from heat exhaustion or heat stroke. Stay adequately hydrated over the next couple of days. Gatorade or Powerade are best. We recommend that you immediately stop using the Afrin nasal spray. As a result , you may developed significant nasal congestion. If this is severe, please follow-up with Dr. Tashia Lundberg as a primary care physician. If any other problems, please do not hesitate to return to the ER. - My Orders Last 24 Hours: My Active Orders 05/12/18 23:27 Orthostatic Vital Signs [RC] STAT - Assessment/Plan Last 24 Hours: My Active Orders 05/12/18 23:27 Orthostatic Vital Signs [RC] STAT
== END 2018-05-13 00:55 | disposition home or self-care (01) ==
LOC: JD.ED 22:17
DX: R53.81 Other malaise (principal); F18.10 Inhalant abuse, uncomplicated; F17.210 Nicotine dependence, cigarettes, uncomplicated
CPT/HCPCS: 99283; 99284